=== PATIENT | male | born 1950 | race Caucasian/White ===

== ENCOUNTER → 2022-12-19 09:31 | Outpatient (CLI) | payer OTHER, SELFPAY ==
--- NOTE | 2022-12-19 10:02 | PC.NURSE ---
Pre and Post Spirometry completed on Pt without incident. Albuterol 0.083% given via, HHN per written protocol, Pt tolerated tx well.
[2022-12-19 10:28] LABS: Microscopic, Urine URINE MICROSCOPIC (MICROSCOPIC)
--- NOTE | 2022-12-19 10:43 | XR_ITS ---
FINAL REPORT CLINICAL HISTORY: EVALUATION hx of COPD COMPARISON: None FINDINGS: Two views of the chest were obtained. The heart size and pulmonary vascularity are within normal limits. The mediastinum is normal. Mild left lung base opacity, likely scar or atelectasis. There is no pneumothorax. The bony thorax is intact. IMPRESSION: Mild left base opacity, likely scar or atelectasis. Reviewed, Interpreted and Dictated by Lonny Welch III, MD Transcribed by Adelaida Lee Authenticated and [facility]
[2022-12-19 10:57] LABS: Appearance,Urine CLEAR (Clear); Bilirubin,Urine Negative (Negative); Blood, Urine Negative (Negative); Color,Urine YELLOW (Yellow); Glucose,Urine (UA) Negative (Negative); Ketones,Urine Negative (Negative); Leukocyte Esterase,Urine Negative (Negative); Nitrate,Urine Negative (Negative); Protein,Urine Negative (Negative); Specific Gravity, Urine 1.015 (1.005-1.030); Urobilinogen,Urine 0.2 EU/dl (0.2)
[2022-12-19 11:10] LABS: Bacteria,Urine Trace /lpf; Squamous Epithelial Cell,Urine Occasional #/hpf (0-5)
[2022-12-19 12:39] LABS: Alanine Aminotransferase 24 U/L (12-78); Albumin Level 4.3 g/dl (3.5-5.0); Albumin/Globulin Ratio 1.4 (1.1-1.8); Alkaline Phosphatase 33 U/L (38-126); Anion Gap 13.7 mEq/L (5-15); Aspartate Amino Transferase 38 U/L (17-59); Bilirubin,Total 0.7 mg/dl (0.2-1.3); Blood Urea Nitrogen 14 mg/dl (9-20); Calcium 9.1 mg/dl (8.4-10.2); Carbon Dioxide 25 mmol/L (22.0-30.0); Chloride 105 mmol/L (98-107); Estimated Glomerular Filt Rate 73 ml/min (>60); GFR (African American) 88 ML/MIN (>60); Globulin 3.1 g/dL (1.3-3.2); Glucose 94 mg/dl (74-100); Potassium 4.7 mmoL/L (3.5-5.1); Sodium 139 mmol/L (136-145); Total Protein,Serum 7.4 g/dl (6.3-8.2)
== END ==
PROVIDERS: Visit Provider Chiropractor
DX: J44.9 Chronic obstructive pulmonary disease, unspecified (principal); R73.03 Prediabetes
CPT/HCPCS: 36415; 71046; 80053; 81001; 94060

== ENCOUNTER → 2023-02-08 10:30 | Outpatient (CLI) | payer OTHER, SELFPAY ==
--- NOTE | 2023-02-08 10:34 | CA_ITS ---
APPROVED REPORT EXAM: Comprehensive 2D, Doppler, and color-flow Echocardiogram Blanking Machine Operator: BUSHRA Patterson, RVS Ht: 6 ft 0 in Wt: 198lbs BSA: 2.12 BP: 170/82 mmHg Indications: CHF, HTN, COPD 2D Dimensions Left Atrium 2.47 cm LA Volume 26.80 mL LA Volume Index 12.40 mL/m2 (M/F) 16-34 M-Mode Dimensions RVDd 2.90 cm (0.9-2.6) LA Diam 3.71 cm (1.9-4.0) LVDd 5.32 cm (3.5-5.7) LVDs 3.59 cm (3.5-5.7) IVSd 1.05 cm (0.6-1.1) PWd 1.05 cm (0.6-1.1) EF (Teich) 60.40% EPSs 1.17 cm FS 32.50% EDV (Teich) 136.50 mL TAPSE 1.79 (<1.7) ESV (Teich) 54.10 mL LV Diastology E Decel Time 163 (160-240 msec) E/A Ratio 0.90 MED A' 15.90 cm/s LAT A' 18.30 cm/s Aortic Valve LISSETTE Index 1.26 cm2/m2 AoV Peak Osmany. 87.0 (50-130 cm/s) AI PHT 446.00 ms AO Peak GR. 3.10 mmHg AO Mean GR. 1.50 (<5 mmHg) AO VTI 20.3 (18-25 cm) LISSETTE (VTI) 2.74 (2.5-4.5 cm2) Mitral Valve MV A Velocity 71.0 (40-130 cm/s) E/A Ratio 0.90 Pulmonary Valve IA End VMAX 217.0 cm/s Tricuspid Valve TR P. Velocity 273.00 cm/s Left Ventricle The left ventricle is normal size. The left ventricular systolic function is normal. The left ventricular ejection fraction is within the normal range. There is increased LV wall thickness. There is normal LV segmental wall motion. Diastolic function is indeterminate. LVEF is 60%. Right Ventricle The right ventricle is normal size. The right ventricular systolic function is normal. Atria The left atrium size is normal. The right atrium size is normal. There is no Doppler evidence of interatrial shunt. Aortic Valve The aortic valve is normal in structure. There is no aortic valvular stenosis. Mild aortic regurgitation. Mitral Valve The mitral valve is normal in structure. No evidence of mitral valve stenosis. There is no mitral valve regurgitation noted. Tricuspid Valve The tricuspid valve leaflets are thin and pliable. Mild tricuspid regurgitation. RVSP is 30-35 mmHg. Pulmonic Valve The pulmonary valve is normal in structure. Trace pulmonic regurgitation. Great Vessels The aortic root is normal in size. The ascending aorta is normal in size. IVC is normal in size and collapses >50% with inspiration. Pericardium There is no pericardial effusion. Other Information Study Quality: Fair Conclusion Normal biventricular systolic function. Mild AI, mild TR. RVSP 30-35 mmHg. Electronically signed by : Lizzy Flores MD 02/14/2023 23:10:33
== END ==
LOC: RT 10:31
PROVIDERS: PCP Family Medicine; Visit Provider Chiropractor
DX: I10 Essential (primary) hypertension (principal)
CPT/HCPCS: 93306

== ENCOUNTER 2023-04-01 13:04 | Outpatient (CLI) | payer OTHER, SELFPAY ==
--- NOTE | 2023-04-01 13:23 | ECG_ITS ---
APPROVED REPORT Exam: Resting ECG HR:87 bpm ECG Measurements Heart Rate 87 AXES VA 210 P 46 QRSd 91 QRS 60 QT 350 T 67 QTc 395 Conclusion SINUS RHYTHM WITH FIRST DEGREE AV BLOCK ABNORMAL ECG UNCONFIRMED REPORT Electronically signed by : John Montelongo MD 04/05/2023 14:50:31
== END 2023-04-01 23:59 ==
LOC: RT 13:05
PROVIDERS: PCP Family Medicine; Visit Provider Chiropractor
DX: J44.0 Chronic obstructive pulmonary disease with (acute) lower respiratory infection (principal)
CPT/HCPCS: 93005